=== PATIENT | male | born 1985 | race Asian ===

== ENCOUNTER 2021-07-03 14:04 | Emergency (ER) | payer BC ==
[~2021-07-03] VITALS: Ht 177.8 cm; Wt 94.3 kg
[2021-07-03] MEDS ORDERED: ALBU90OI INH (14:42)
== END 2021-07-03 14:47 | disposition home or self-care (01) ==
LOC: ER 14:04
DX: J45.909 Unspecified asthma, uncomplicated (principal); Z76.0 Encounter for issue of repeat prescription
CPT/HCPCS: 99281